=== PATIENT | male | born 1975 | race American Indian/Alaskan Native ===

== ENCOUNTER 2018-07-19 14:31 | Emergency (ER) | payer SELFPAY ==
[2018-07-19 14:42] VITALS: BP 111/75
--- NOTE | 2018-07-19 15:52 | Emergency Department Report ---
ED Upper Extremity Inj HPI - General Chief Complaint: Extremity Injury, Upper Stated Complaint: INJURY TO ARM Time Seen by Provider: 07/19/18 15:04 Source: patient Mode of arrival: Ambulatory Limitations: No Limitations - History of Present Illness Complaint: Injury to:: right, shoulder -: Sudden Other Extremity Injury: Shoulder: Right Handedness: right Place: work Context: fall Associated Symptoms: denies other symptoms Treatments Prior to Arrival: NSAIDS - Related Data Previous Rx's Medication Instructions Recorded Last Taken Type Cyclobenzaprine [Flexeril 10mg] 10 mg PO TID PRN #30 tablet 04/28/14 Unknown Rx Ibuprofen [Motrin] 800 mg PO TID #30 tablet 04/28/14 Unknown Rx traMADol [Ultram 50 MG tab] 50 mg PO Q6HR PRN #30 tablet 04/28/14 Unknown Rx Ibuprofen [Motrin] 600 mg PO Q8H PRN #20 tablet 07/19/18 Unknown Rx Allergies Allergy/AdvReac Type Severity Reaction Status Date / Time No Known Allergies Allergy Verified 07/19/18 14:37 ED Review of Systems ROS: Stated complaint: INJURY TO ARM Other details as noted in HPI Comment: All other systems reviewed and negative Constitutional: no symptoms reported Eyes: denies: eye pain, eye discharge, vision change ENT: denies: ear pain, throat pain Respiratory: no symptoms reported Cardiovascular: denies: chest pain, palpitations Endocrine: no symptoms reported Gastrointestinal: denies: abdominal pain, nausea, diarrhea Genitourinary: denies: urgency, dysuria Musculoskeletal: other (R SHOULDER PAIN) Skin: denies: rash, lesions Neurological: denies: headache, weakness, paresthesias Psychiatric: denies: anxiety, depression Hematological/Lymphatic: denies: easy bleeding, easy bruising ED Past Medical Hx - Past Medical History Previous Medical History?: No - Surgical History Past Surgical History?: No - Social History Smoking Status: Never Smoker Substance Use Type: None - Medications Home Medications: Home Medications Medication Instructions Recorded Confirmed Last Taken Type Cyclobenzaprine [Flexeril 10mg] 10 mg PO TID PRN #30 tablet 04/28/14 Unknown Rx Ibuprofen [Motrin] 800 mg PO TID #30 tablet 04/28/14 Unknown Rx traMADol [Ultram 50 MG tab] 50 mg PO Q6HR PRN #30 tablet 04/28/14 Unknown Rx Ibuprofen [Motrin] 600 mg PO Q8H PRN #20 tablet 07/19/18 Unknown Rx ED Physical Exam - General Limitations: No Limitations General appearance: alert, in no apparent distress - Head Head exam: Present: atraumatic - Eye Eye exam: Present: normal appearance, PERRL - ENT ENT exam: Present: normal exam - Neck Neck exam: Present: normal inspection - Respiratory Respiratory exam: Present: normal lung sounds bilaterally - Cardiovascular Cardiovascular Exam: Present: regular rate - GI/Abdominal GI/Abdominal exam: Present: soft - Rectal Rectal exam: Present: deferred - Extremities Exam Extremities exam: Present: full ROM - Expanded Upper Extremity Exam Right Shoulder Exam: Present: tenderness (AT AC AREA). Absent: swelling, abrasion, laceration, ecchymosis, deformity, crepidus, dislocation, erythema, tenderness over AC joint, other Upper Arm exam: Present: normal inspection Neurosensory exam: Present: 2-point discrimination Vascular: Present: normal capillary refill - Back Exam Back exam: Present: normal inspection, full ROM - Neurological Exam Neurological exam: Present: alert, oriented X3 - Psychiatric Psychiatric exam: Present: normal affect, normal mood - Skin Skin exam: Present: warm, dry, normal color ED Course Vital Signs 07/19/18 14:37 Temperature 98.7 F Pulse Rate 101 H Respiratory 16 Rate Blood Pressure 111/75 O2 Sat by Pulse 98 Oximetry - Reevaluation(s) Reevaluation #1: 07/19/18 16:15 SP FALL AT WORK LANDING ON R SHOULDER. SEVERAL DAYS AGO. FULL ROM BUT SORE. ED Medical Decision Making - Radiology Data Radiology results: report reviewed, image reviewed - Differential Diagnosis RO FX ARM Critical care attestation.: If time is entered above; I have spent that time in minutes in the direct care of this critically ill patient, excluding procedure time. ED Disposition Clinical Impression: Right shoulder strain, Fall, AC separation Disposition: DC-01 TO HOME OR SELFCARE Is pt being admited?: No Does the pt Need Aspirin: No Condition: Stable Instructions: Shoulder Sprain (ED) Additional Instructions: ALTERNATE ICE AND HEAT FOR COMFORT MOTRIN WILL HELP BEST FOR PAIN IF PAIN PERSISTS FOLLOW UP WITH ORTHO Prescriptions: Ibuprofen [Motrin] 600 mg PO Q8H PRN #20 tablet PRN Reason: Pain Referrals: PRIMARY CARE, [Primary Care Provider] - 3-5 Days JUAN JOSE LAZO MD [Staff Physician] - 3-5 Days Time of Disposition: 16:33
[2018-07-19] MEDS ORDERED: ULTRAM PO ONE (16:37)
--- NOTE | 2018-07-19 16:43 | XRay Report ---
FINAL REPORT EXAM: XR SHOULDER 2+V RT HISTORY: fall/RT SHOULDER TECHNIQUE: Frontal and Y-views right shoulder Comparison: None FINDINGS: There is no evidence of fracture. There appears to be widening of the acromioclavicular joint which may indicate acromioclavicular separation of indeterminate age. There is no definite evidence of associated soft tissue swelling. IMPRESSION: 1. No evidence of fracture. 2. Appearance of widening of the acromioclavicular joint which may indicate acromioclavicular separation of indeterminate age. No definite evidence of associated soft tissue swelling.
== END 2018-07-19 17:14 | disposition home or self-care (01) ==
LOC: ED 14:31
DX: S46.911A Strain of unspecified muscle, fascia and tendon at shoulder and upper arm level, right arm, initial encounter (principal); W19.XXXA Unspecified fall, initial encounter; Y93.89 Activity, other specified; Y92.69 Other specified industrial and construction area as the place of occurrence of the external cause; Y99.8 Other external cause status
CPT/HCPCS: 99284